=== PATIENT | male | born 2000 | race African-American/Black ===

== ENCOUNTER 2025-07-21 17:29 | Inpatient (IN) | payer MEDICAID, OTHER, SELFPAY ==
[2025-07-21 17:45] VITALS: BP 105/56; PULSE 84; RESP 18; TEMP 36.4; O2SAT 98
[2025-07-21 18:24] VITALS: BMI 22.1
--- NOTE | 2025-07-21 18:58 | PC.ADMIT ---
Arthur is a 25 y/o male , language is French Creole admitted from [facility] at 1740 on a CV for the treatment of? psychosis unspecified. Pt called 911 after having CAH to harm himself and family. Pt is A&O x 3 he is not aware of location. Pt is distracted with poor eye contact. Speech was mumbled . TW met with pt using the [employer] service, # [id number]. Pt is depressed and concerned about ?getting treatment for his thoughts?. Pt reporting that when he listens to music he hears voices telling him to harm others. Pt says he will get staff id these thoughts arise. Pt clint SI at this time. Pt was distracted during the interview and had some delayed responses.? Pt is unsure where he will live when discharged, reporting he is now homeless. He denies any recent weight loss. He reports having nightmares that make his sleep difficult. Pt has not provided a tox screen, but declines any substance use. Skin check completed and skin is intact. Pt declines any medical concerns and none are visible. Pt placed on 15 minute safety checks. Pt declined the flu vaccine.
[2025-07-22 07:00] VITALS: BMI 22.2
[2025-07-22 08:00] VITALS: BP 103/52; PULSE 75; RESP 16; TEMP 36.5; O2SAT 100
[2025-07-22 09:13] LABS: Alanine Aminotransferase 23 U/L (0-40); Albumin Level 4.9 g/dL (3.5-5.0); Alkaline Phosphatase 84 U/L (39-117); Anion Gap 14 (12-20); Aspartate Amino Transferase 25 U/L (5-37); Blood Urea Nitrogen 16 mg/dL (9-16); Calcium 9.6 mg/dL (8.4-10.2); Carbon Dioxide 27 mmol/L (22-29); Chloride 106 mmol/L (96-108); Cholesterol 106 mg/dL (<200); Creatinine Clr Calc Pharmacy 87.0; Estimated Glomerular Filt Rate > 60; HDL Cholesterol 42 mg/dL (>40); Magnesium 2.0 mg/dL (1.6-2.6); Potassium 4.4 mmol/L (3.3-5.1); Sodium 143 mmol/L (135-145); Total Protein 7.7 g/dL (6.5-8.0); Triglycerides 80 mg/dL (<150)
[2025-07-22 09:30] LABS: Free T4 (Free Thyroxine) 1.05 ng/dL (0.71-1.85); Thyroid Stimulating Hormone 0.65 uIU/mL (0.32-4.0)
[2025-07-22 09:36] LABS: Folate 12.8 ng/mL (> or = 4.0); Vitamin B12 1047 pg/mL (200-900)
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
--- NOTE | 2025-07-22 13:38 | P.HPPS_ITS ---
HPI Date of Service: 07/22/25 Chief Complaint: SI and HI Sources of Information: patient interviewed, chart reviewed and crisis/core team assessment reviewed HPI Subjective Notes: Wilde Warning and Conditional Voluntary Healthcare Proxy: No Guardianship: No Medical Problems Affecting Mental Status: No Narrative: Per [place] ED note: Patient is a 25 y.o single Black Armenian male with no prior mental or medical hx who presented to ED via EMS seeking for evaluation on 07/13/25. patient is consistent with report and displayed difficulties recalling a time-line describing the past few weeks. Report he has not slept in a week. Report BILL that affect his ability to sleep. Report feeling depressed because of lacking of sleep. repot something happened at work that he never experienced before which boomeranged and created a riple effect resulting in him feeling down. Report buying Magnesium to help with sleep but found it not helpful. On M3: Meet with patient on 3 different occasions from 07/21 for legal and again twice on 07/22/25 via Call Center Nurse device. The interviewed was interrupted d/t other emergent matter on the unit. Patient continues presenting with inconsistent with information regarding what happened that led to hospitalization and mental health Report no prior mental health issues in the past. This is his first psychiatric admission.He goes back and forth to yes and no regarding SI/SIB/HI/AVH. Report current having passive SI without plan/intent but later on denies SI. Report HI toward whoever close to me and family but then denies it. Report he may get upset and feeling that way. Alsp report CAH but not able to recall what the voices were about or telling him. however, later on he denies it. Report hx of suicide attempt but also says Life is so beautiful for me to kill myself . Report no issues with sleep or appite. Denies Substance use. Denies OP providers. He says he is unemployed but used to work at [employer] from 05/31/25 to 06/22/25 but not able to tell what happened and why he is not working currently. Report he is currently homeless but used to stay with one of family member . Report he cannot return Denies family hx of mental health and substance use. he denies current substance use as well. No more when asked regarding alcohol use issues. Denies legal issues. Patient is A+Ox3, wearing hospital attire, anxious, but pleasant and cooperative. Poor eye contact, mostly head down and look down on the floor but other times he has good eye contact. Inconsistent with reports. Disorganized thoughts, not linear. Insistent regarding safety questions. No unsafe behaviors observed. Appear to be preoccupied, poor historian. Poor judgment and insight. Past Psychiatric History: No prior psychiatric admission hx. No PHP/Respite/detox hx No OP provider No suicide attempt hx. He is not sure if he takes medication in the past Medical Evaluation Reviewed: Hospitalist Roman Pending [facility] Narrative: Denies Narrative: Denies Family History: Denies mental health an substance use in family Social History: He is single, Creo/Armenian speaking. no children. Move to the [place] a about a year. Have been staying with family. Family is supportive per crisis report Substance History: Denies Trauma History: Report something happened at work but not able to collaborate for further information. Diagnostics Vital Signs (24Hr): Vital Signs - 24 hr 07/21/25 17:45 07/22/25 08:00 Temperature 97.5 F 97.7 F Pulse Rate 84 75 Respiratory Rate 18 16 Blood Pressure 105/56 L 103/52 L Pulse Oximetry 98 100 Oxygen Delivery Method Room Air Room Air BMI result Body Mass Index 22.2 Labs 07/22/25 08:12 Labs: Laboratory Results - last 48 hr 07/22/25 07/22/25 08:12 08:19 Sodium 143 Potassium 4.4 Chloride 106 Carbon Dioxide 27 Anion Gap 14 BUN 16 Creatinine 1.27 Estim Creat Clear Calc 87.0 Estimated GFR > 60 Random Glucose 80 Estimat Average Glucose 97 Hemoglobin A1c % 5.0 Calcium 9.6 Magnesium 2.0 Total Bilirubin 0.8 AST 25 ALT 23 Alkaline Phosphatase 84 Total Protein 7.7 Albumin 4.9 Triglycerides 80 Cholesterol 106 LDL Cholesterol, Calc 48 HDL Cholesterol 42 Vitamin B12 1047 H Folate 12.8 TSH 0.65 Free T4 1.05 Meds/Allergies Allergies Allergies Allergy/AdvReac Type Severity Reaction Status Date / Time peanut AdvReac Anaphylaxis Verified 07/21/25 18:25 Mental Status Exam Mental Status Exam Narrative: Patient is A+Ox3, wearing hospital attire, anxious, but pleasant and cooperative. Poor eye contact, mostly head down and look down on the floor but other times he has good eye contact. Inconsistent with reports. Disorganized thoughts, not linear. Insistent regarding safety questions. No unsafe behaviors observed. Appear to be preoccupied, poor historian. Poor judgment and insight. Assessment & Plan Assessment & Plan (1) Unspecified psychosis: Status: Acute Code(s): F29 - Unspecified psychosis not due to a substance or known physiological condition Plan HPI: Patient is a 25 y.o single Black Armenian male with no prior mental or medical hx who presented to ED via EMS seeking for evaluation on 07/13/25. patient is consistent with report and displayed difficulties recalling a time- line describing the past few weeks. Report he has not slept in a week. Report BILL that affect his ability to sleep. Report feeling depressed because of lacking of sleep. repot something happened at work that he never experienced before which boomeranged and created a riple effect resulting in him feeling down. Report buying Magnesium to help with sleep but found it not helpful. Formulation/clinical reasoning: unknown pyschotic cause, increased in anxiety, sleep issues, recently changes in living situation. Very disorganized thoughts, preoccupied. No prior psychiatric hx. Patient would benefit in restrictive environment, diagnostic, medication management and refer patient to OP psychiatric services for aftercare. Hospital course: 07/22/25: No home meds. Poor historian. Discuss with patient regarding Zyprexa to see if it helps clear his thoughts and for possible psychotic behavior. Appear to be psychptic and preoccupied. Zyprexa 5mg at HS and BID PRN Trazodone PRN and Vistaril PRN for insomnia and Anixety. Plan Patient on 15 minute checks for safety. Admitted to M3. CV. Work with treatment team to do collateral Contact the hospitalist regarding hospitalist consultation on admission: seen Patient educated on: diagnosis, medication risk/benefits and therapeutic strategies Informed Consent: understands and further education needed Reason for continued inpatient stay Substantial Risk for: med/psych decompensation Statement Statement: I have reviewed the history and physical and performed a pertinent examination on my patient. No changes have occurred unless specified. If the History and Physical was not performed prior to admission, the Hospitalist's service will be consulted for completing the admission physical. Time Spent With Patient Time: Total time managing care of this patient today ____ minutes.
[2025-07-22 19:48] VITALS: BP 89/65; PULSE 84; RESP 16; TEMP 36.9; O2SAT 100
[2025-07-22 22:24] VITALS: BP 115/60; PULSE 68
--- NOTE | 2025-07-23 05:54 | HO.PSYCHPN ---
Subjective Subjective Date of Service: 07/23/25 Reason For Visit: SI and HI Subjective Notes: 3 Day Interim History: Chart reviewed. Case discussed in team Met w/ pt along w/ SW and his nurse, utilizing [employer] supervisor of engines over video call. Pt reports feeling okay. Slept well. Denies current AH but also states that doesn't go away. it switches in my head . Denies current SI/violent ideation. Denies med SE. Pt signed 3 day this afternoon Medication Compliance: Yes Side effects from medications: No Mental Status Exam Mental Status Exam Narrative: Appearance: dressed in hospital attire. Grooming/hygiene wnl. looked down, generally avoided eye contact Attitude: Cooperative Speech: Speaks some Somali. Utilized [employer] supervisor of engines, who had to keep asking pt to repeat himself since he was soft spoken and it sounds like some of what he said didn't make sense to the railroad supervisor of engines. Of note, the railroad supervisor of engines's accent was also difficult for us to understand at times. Motor activity: Calm and without any tics, tremors or dyskinesias. Steady gait Mood: as noted above Affect: blunted Thought process: disorganized Thought content: as noted above Perception: does not appear to respond to internal stimuli Insight: fair Judgment: fair Diagnostics Vital Signs (24Hr): Vital Signs - 24 hr 07/22/25 08:00 07/22/25 19:48 07/22/25 22:24 Temperature 97.7 F 98.4 F Pulse Rate 75 84 68 Respiratory Rate 16 16 Blood Pressure 103/52 L 89/65 L 115/60 Pulse Oximetry 100 100 Oxygen Delivery Method Room Air Room Air BMI result Body Mass Index 22.2 Labs 07/22/25 08:12 Labs: Laboratory Results - last 48 hr 07/22/25 07/22/25 08:12 08:19 Sodium 143 Potassium 4.4 Chloride 106 Carbon Dioxide 27 Anion Gap 14 BUN 16 Creatinine 1.27 Estim Creat Clear Calc 87.0 Estimated GFR > 60 Random Glucose 80 Estimat Average Glucose 97 Hemoglobin A1c % 5.0 Calcium 9.6 Magnesium 2.0 Total Bilirubin 0.8 AST 25 ALT 23 Alkaline Phosphatase 84 Total Protein 7.7 Albumin 4.9 Triglycerides 80 Cholesterol 106 LDL Cholesterol, Calc 48 HDL Cholesterol 42 Vitamin B12 1047 H Folate 12.8 TSH 0.65 Free T4 1.05 Medications Medications Current Medications Acetaminophen (Acetaminophen 325 Mg Tablet) 650 mg PO Q6H PRN PRN Reason: Headache/Pain, Scale 1-10 Al Hydroxide/Mg Hydroxide (Magnesium Hydrox/Alum Hydrox 30 Ml Oral.Susp) 30 ml PO Q6H PRN PRN Reason: Heartburn/Nausea Hydroxyzine HCl (Hydroxyzine Hcl 25 Mg Tablet) 25 mg PO Q6H PRN PRN Reason: mild anxiety Last Admin: 07/22/25 09:40 Dose: 25 mg Magnesium Hydroxide (Milk Of Magnesia 30 Ml Oral.Susp) 30 ml PO DAILY PRN PRN Reason: Constipation Nicotine (Nicotine 21 Mg Patch.Td24) 21 mg TRANSDERMA DAILY PRN PRN Reason: nicotine craving Nicotine Polacrilex (Nicotine Polacrilex 2 Mg Gum) 2 mg BUCCAL Q2H PRN PRN Reason: Nicotine Cravings Olanzapine (Olanzapine 5 Mg Tablet) 5 mg PO BID PRN PRN Reason: agitation Last Admin: 07/22/25 09:40 Dose: 5 mg Olanzapine (Olanzapine 5 Mg Tablet) 5 mg PO BEDTIME MYKE Last Admin: 07/22/25 20:13 Dose: 5 mg Trazodone HCl (Trazodone Hcl 50 Mg Tablet) 50 mg PO BEDTIME MRX1 PRN PRN Reason: Insomnia Allergies Allergies Allergy/AdvReac Type Severity Reaction Status Date / Time peanut AdvReac Anaphylaxis Verified 07/21/25 18:25 Assessment & Plan Assessment & Plan (1) Unspecified psychosis: Status: Acute Code(s): F29 - Unspecified psychosis not due to a substance or known physiological condition Plan HPI: Patient is a 25 y.o single Black Citizen Of [place] male with no prior mental or medical hx who presented to ED via EMS seeking for evaluation on 07/13/25. patient is consistent with report and displayed difficulties recalling a time-line describing the past few weeks. Report he has not slept in a week. Report BILL that affect his ability to sleep. Report feeling depressed because of lacking of sleep. repot something happened at work that he never experienced before which boomeranged and created a riple effect resulting in him feeling down. Report buying Magnesium to help with sleep but found it not helpful. Formulation/clinical reasoning: unknown pyschotic cause, increased in anxiety, sleep issues, recently changes in living situation. Very disorganized thoughts, preoccupied. No prior psychiatric hx. Patient would benefit in restrictive environment, diagnostic, medication management and refer patient to OP psychiatric services for aftercare. Hospital course: 07/22/25: No home meds. Poor historian. Discuss with patient regarding Zyprexa to see if it helps clear his thoughts and for possible psychotic behavior. Appear to be psychptic and preoccupied. Zyprexa 5mg at HS and BID PRN Trazodone PRN and Vistaril PRN for insomnia and Anixety. Plan Patient on 15 minute checks for safety. Admitted to M3. CV. Work with treatment team to do collateral Contact the hospitalist regarding hospitalist consultation on admission: seen 07/13: Pt signed a 3 day note. His thought process is disorganized and the Citizen [place] Creole had difficulty understanding him at times. Will continue current tx plan for now. Reason for continued inpatient stay Substantial Risk for: med/psych decompensation Time Spent With Patient Time: Total time managing care of this patient today ____ minutes.
[2025-07-23 08:00] VITALS: BP 146/81; PULSE 60; RESP 20; TEMP 36.3; O2SAT 100
[2025-07-23 20:00] VITALS: BP 135/84; PULSE 99; RESP 16; TEMP 37.1; O2SAT 99
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
--- NOTE | 2025-07-24 05:10 | PC.NURSE ---
Awake for most part of the night, disorganized, self dialoguing and exit seeking. Pt slept for 2 hours. He was placed on 5 minutes check for elopement risk.
[2025-07-24 07:30] VITALS: BP 99/57; PULSE 77; RESP 16; TEMP 36.6; O2SAT 100
--- NOTE | 2025-07-24 12:51 | HO.BHRESTREX ---
Behavioral Restraint Exam Behavioral Health Restraint Exam Type of Restraint: Physical Hold, Medication and Mechanical Reason for Restraint: Substantial Risk of Harm to Others Behavioral Assessment / Plan: No further behavioral concerns, continue current plan. (Monitor for any possible side effects from medications. ) Comment: This provider face to face assesses patient within an hour of restraint
[2025-07-24] MEDS: diazePAM 10 MG/2 ML CARTRIDGE IM (13:01)
--- NOTE | 2025-07-24 13:03 | HO.PSYEVENT ---
Documented by User: Dee Dee Lugo NP 07/25/25 00:08 Event Note Date of Service: 07/25/25 Psych Restraint Event Note: Code assist called, Per nursing staff, patient grabbed staff badge, eloped off unit to double door, not able to redirect back to unit. Physical escorted back by staff by 1240. Appear to be agitated, not able to demonstrate safe behaviors. Therefore, patient placed on R/S chair. Refused PO medications, but not able to calm down, IM x1 of Haldol 10mg, Benadryl 25mg and Valium 10 mg given with pending effects. This provider face to face assess patient within an hour of R/S at 1252. Patient states I did not know why he did it (grabbing staff badge) but states that he signed the paper when he came in but I do not think I need to be here . Continue to fight, moving around to get out of R/S chair but redirectable. Patient states he would not do it again. This provider explains d/t family reports unsafe and change in mental status and appeared to be psychotic, therefore he was brought to the hospital. Denies pain. No injured to staff or patient. Security at the seen to assist. Nursing to assess and provide emotional support during R/S. Montior VSs and possible side effects from medications. Release patient once able to regain safe behavior. Contact provider for any safety concerns Time Spent With Patient Time: Total time managing care of this patient today ____ minutes. Documented by User: Lang Umana MD 07/25/25 11:18 Event Note Date of Service: 07/25/25
--- NOTE | 2025-07-24 14:46 | PC.NURSE ---
Patient ambulating cagle, nurse MM standing with female peer in front of phone. Arthur walked by with smile, exchanged hello, then proceeded to grab staff badge from staff chest area. He then ran to door, scanned staff badge and ran into sarah port. Unable to access second door to sarah port. Unable to be redirected, continued to demand discharge, meter repairer helper RM and Staff [facility] interveined, code assist called. Patient resistive, with continued effort to get out of unit.Physical escort to anti room. Security arrived to unit. Patient placed in restraint chair, orders obtained. Patient medicated with Haldol 10mg IM, Benadryl 25 mg IM, Valium 10mg IM with + effects.
--- NOTE | 2025-07-24 23:50 | HO.PSYCHPN ---
Subjective Subjective Date of Service: 07/24/25 Reason For Visit: SI and HI Subjective Notes: 3 Day Healthcare Proxy: No Guardianship: No Medical Problems Affecting Mental Status: No Interim History: Medical record and nursing notes reviewed; case discussed during rounds with team/nursing staff, and met with patient for supportive therapy/psychoeducation, as well as medication management. Per nursing staff, patient grabbed staff badge, eloped off unit to double door, not able to redirect back to unit. Physical escorted back by staff by 1240. Appear to be agitated, not able to demonstrate safe behaviors. Therefore, patient placed on R/S chair. Refused PO medications, but not able to calm down, IM x1 of Haldol 10mg, Benadryl 25mg and Valium 10 mg given with pending effects. This provider face to face assess patient within an hour of R/S at 1252. Patient states I did not know why he did it (grabbing staff badge) but states that he signed the paper when he came in but I do not think I need to be here . Continue to fight, moving around to get out of R/S chair but redirectable. Patient states he would not do it again. This provider explains d/t family reports unsafe and change in mental status and appeared to be psychotic, therefore he was brought to the hospital. Denies pain. No injured to staff or patient. Security at the seen to assist. Nursing to assess and provide emotional support during R/S. Montior VSs and possible side effects from medications. Release patient once able to regain safe behavior. Contact provider for any safety concerns. Medication change to address aggressive and psychotic behaviors. Preoccupied. Medication Compliance: Yes Side effects from medications: No Attending Groups: No Review of Systems Acute medical concerns: No Medical Review of Systems: unchanged Review of Systems Review of Systems Constitutional: Denies fatigue and Denies fever(s) Cardiovascular: Denies chest pain and Denies dyspnea Respiratory: Denies dyspnea Gastrointestinal: Denies abdominal pain Psychiatric: denies suicidal ideation Endocrine: Denies fatigue Yes all other systems are reviewed and are negative Mental Status Exam Mental Status Exam Narrative: Patient is A+Ox3, wearing casual attire, anxious, agitated, eloped. Fair eye contact, Disorganized thoughts, not linear. Perserverative on Discharged. Appear to be preoccupied, poor historian. Poor judgment and insight. Diagnostics Vital Signs (24Hr): Vital Signs - 24 hr 07/24/25 07:30 Temperature 97.9 F Pulse Rate 77 Respiratory Rate 16 Blood Pressure 99/57 L Pulse Oximetry 100 Oxygen Delivery Method Room Air BMI result Body Mass Index 22.2 Labs 07/22/25 08:12 Medications Medications Current Medications Acetaminophen (Acetaminophen 325 Mg Tablet) 650 mg PO Q6H PRN PRN Reason: Headache/Pain, Scale 1-10 Al Hydroxide/Mg Hydroxide (Magnesium Hydrox/Alum Hydrox 30 Ml Oral.Susp) 30 ml PO Q6H PRN PRN Reason: Heartburn/Nausea Hydroxyzine HCl (Hydroxyzine Hcl 25 Mg Tablet) 25 mg PO Q6H PRN PRN Reason: mild anxiety Last Admin: 07/23/25 20:38 Dose: 25 mg Magnesium Hydroxide (Milk Of Magnesia 30 Ml Oral.Susp) 30 ml PO DAILY PRN PRN Reason: Constipation Nicotine (Nicotine 21 Mg Patch.Td24) 21 mg TRANSDERMA DAILY PRN PRN Reason: nicotine craving Nicotine Polacrilex (Nicotine Polacrilex 2 Mg Gum) 2 mg BUCCAL Q2H PRN PRN Reason: Nicotine Cravings Olanzapine (Olanzapine 5 Mg Tablet) 5 mg PO BID PRN PRN Reason: agitation Last Admin: 07/24/25 21:11 Dose: 5 mg Olanzapine (Olanzapine 5 Mg Tablet) 5 mg PO BEDTIME MYKE Last Admin: 07/24/25 21:11 Dose: 5 mg Trazodone HCl (Trazodone Hcl 50 Mg Tablet) 50 mg PO BEDTIME MRX1 PRN PRN Reason: Insomnia Allergies Allergies Allergy/AdvReac Type Severity Reaction Status Date / Time peanut AdvReac Anaphylaxis Verified 07/21/25 18:25 Assessment & Plan Assessment & Plan (1) Unspecified psychosis: Status: Acute Code(s): F29 - Unspecified psychosis not due to a substance or known physiological condition Plan HPI: Patient is a 25 y.o single Black [place] male with no prior mental or medical hx who presented to ED via EMS seeking for evaluation on 07/13/25. patient is consistent with report and displayed difficulties recalling a time-line describing the past few weeks. Report he has not slept in a week. Report BILL that affect his ability to sleep. Report feeling depressed because of lacking of sleep. repot something happened at work that he never experienced before which boomeranged and created a riple effect resulting in him feeling down. Report buying Magnesium to help with sleep but found it not helpful. Formulation/clinical reasoning: unknown pyschotic cause, increased in anxiety, sleep issues, recently changes in living situation. Very disorganized thoughts, preoccupied. No prior psychiatric hx. Patient would benefit in restrictive environment, diagnostic, medication management and refer patient to OP psychiatric services for aftercare. Hospital course: 07/22/25: No home meds. Poor historian. Discuss with patient regarding Zyprexa to see if it helps clear his thoughts and for possible psychotic behavior. Appear to be psychptic and preoccupied. Zyprexa 5mg at HS and BID PRN Trazodone PRN and Vistaril PRN for insomnia and Anxiety. 07/13: Pt signed a 3 day note. His thought process is disorganized and the [place]ian Creole had difficulty understanding him at times. Will continue current tx plan for now. 07/24/25: Per nursing staff, patient grabbed staff badge, eloped off unit to double door, not able to redirect back to unit. Physical escorted back by staff by 1240. Appear to be agitated, not able to demonstrate safe behaviors. Therefore, patient placed on R/S chair. Refused PO medications, but not able to calm down, IM x1 of Haldol 10mg, Benadryl 25mg and Valium 10 mg given with pending effects. This provider face to face assess patient within an hour of R/S at 1252. Patient states I did not know why he did it (grabbing staff badge) but states that he signed the paper when he came in but I do not think I need to be here . Continue to fight, moving around to get out of R/S chair but redirectable. Patient states he would not do it again. This provider explains d/t family reports unsafe and change in mental status and appeared to be psychotic, therefore he was brought to the hospital. Denies pain. No injured to staff or patient. Security at the seen to assist. Nursing to assess and provide emotional support during R/S. Montior VSs and possible side effects from medications. Release patient once able to regain safe behavior. Contact provider for any safety concerns. Medication change to address aggressive and psychotic behaviors. Preoccupied. Poor sleep (only 2 hours). Spitting PRN out when offered. Zyprexa 5mg daily in the morning. Increase HS dose from 5 to 10mg. Patient is on JOSE Restriction. Mouth check. Change to 5 min check. Plan Patient on 15 minute checks for safety: change to 5 min check. Elopement risk. Admitted to [facility]. CV.Signed 3-day notice. on 07/28. Work with treatment team to do collateral Contact the hospitalist regarding hospitalist consultation on admission: seen JOSE restriction and mouth check. Patient educated on: diagnosis, medication risk/benefits and therapeutic strategies Informed Consent: understands and further education needed Reason for continued inpatient stay Substantial Risk for: med/psych decompensation Time Spent With Patient Time: Total time managing care of this patient today ____ minutes.
[2025-07-25 08:00] VITALS: BP 115/69; PULSE 115; RESP 20; TEMP 35.9; O2SAT 100
[2025-07-25 19:41] VITALS: BP 120/63; PULSE 88; RESP 16; TEMP 36.6; O2SAT 97
--- NOTE | 2025-07-25 23:49 | P.PNPSI_ITS ---
Subjective Subjective Date of Service: 07/25/25 Reason For Visit: SI and HI Subjective Notes: 3 Day Healthcare Proxy: No Guardianship: No Medical Problems Affecting Mental Status: No Interim History: Medical record and nursing notes reviewed; case discussed during rounds with team/nursing staff, and met with patient for supportive therapy/psychoeducation, as well as medication management. Met with patient in sensory room without ornamental metal worker helper. Patient speaks pretty well Slovenian. He has the whole stack of legal information given to him by nursing staff. We will review the legal and explained to him over and over again but patient still does not seem processing it well. Explained to patient that on the 1st day he came, he wanted treatment that is why he signed the conditional volunteer with this provider. He also agree with medication plan. Nursing even break down regarding legal and steps may take place. Patient signed a 3 days yesterday. Perseverative on discharge, insisted and repeated saying I am not mentally ill . Reports that my brain is working better . Reports that he was homeless on admission, but denies it today irma, I have my family. They visited me . How come I am homeless and I have my family visit me . Patient is not able to give any answers regarding safety concerns, hallucinations as he has mainly focused on discharge. Patient reports he takes medications but not able to recall. However, on the 1st day he came in, said he takes Tylenol and nothing else Patient appear preoccupied, very tense, anxious, perseverative on discharge, disorganized. Do not peer to have insight. Poor judgment. Per nursing, patient slept better last night with 8 hours, compliant with medications. Per [facility], who was with the patient during restrain in the chair, patient told this he had a couple of times that are you a dad? Do not yell at your kids . Elopement risk, on 5 minute check, mouth check with medication, staff who getting close to him have to hide the batches in pocket as patient still having behavior that suspect that patient can grabthe batch. Medication Compliance: Yes Side effects from medications: No Attending Groups: No Review of Systems Acute medical concerns: No Medical Review of Systems: unchanged Review of Systems Review of Systems Constitutional: Denies fatigue and Denies fever(s) Cardiovascular: Denies chest pain and Denies dyspnea Respiratory: Denies dyspnea Gastrointestinal: Denies abdominal pain Psychiatric: not able to obtain Endocrine: Denies fatigue Yes all other systems are reviewed and are negative Mental Status Exam Mental Status Exam Narrative: Patient is A+Ox3, wearing casual attire, anxious, elopement risk. Fair eye contact, Disorganized thoughts, not linear. Perserverative on Discharged. Appear to be preoccupied, poor historian. Poor judgment and insight. Diagnostics Vital Signs (24Hr): Vital Signs - 24 hr 07/25/25 08:00 07/25/25 19:41 Temperature 96.6 F L 97.9 F Pulse Rate 115 H 88 Respiratory Rate 20 16 Blood Pressure 115/69 120/63 Pulse Oximetry 100 97 Oxygen Delivery Method Room Air Room Air BMI result Body Mass Index 22.2 Labs 07/22/25 08:12 Medications Medications Current Medications Acetaminophen (Acetaminophen 325 Mg Tablet) 650 mg PO Q6H PRN PRN Reason: Headache/Pain, Scale 1-10 Al Hydroxide/Mg Hydroxide (Magnesium Hydrox/Alum Hydrox 30 Ml Oral.Susp) 30 ml PO Q6H PRN PRN Reason: Heartburn/Nausea Hydroxyzine HCl (Hydroxyzine Hcl 25 Mg Tablet) 25 mg PO Q6H PRN PRN Reason: mild anxiety Last Admin: 07/25/25 20:12 Dose: 25 mg Magnesium Hydroxide (Milk Of Magnesia 30 Ml Oral.Susp) 30 ml PO DAILY PRN PRN Reason: Constipation Nicotine (Nicotine 21 Mg Patch.Td24) 21 mg TRANSDERMA DAILY PRN PRN Reason: nicotine craving Nicotine Polacrilex (Nicotine Polacrilex 2 Mg Gum) 2 mg BUCCAL Q2H PRN PRN Reason: Nicotine Cravings Olanzapine (Olanzapine 5 Mg Tablet) 5 mg PO BID PRN PRN Reason: agitation Last Admin: 07/24/25 21:11 Dose: 5 mg Olanzapine (Olanzapine 10 Mg Tablet) 10 mg PO BEDTIME MYKE Last Admin: 07/25/25 20:13 Dose: 10 mg Olanzapine (Olanzapine 5 Mg Tablet) 5 mg PO DAILY MYKE Last Admin: 07/25/25 09:08 Dose: 5 mg Trazodone HCl (Trazodone Hcl 50 Mg Tablet) 50 mg PO BEDTIME MRX1 PRN PRN Reason: Insomnia Allergies Allergies Allergy/AdvReac Type Severity Reaction Status Date / Time peanut AdvReac Anaphylaxis Verified 07/21/25 18:25 Assessment & Plan Assessment & Plan (1) Unspecified psychosis: Status: Acute Code(s): F29 - Unspecified psychosis not due to a substance or known physiological condition Plan HPI: Patient is a 25 y.o single Black [place] male with no prior mental or medical hx who presented to ED via EMS seeking for evaluation on 07/13/25. patient is consistent with report and displayed difficulties recalling a time- line describing the past few weeks. Report he has not slept in a week. Report BILL that affect his ability to sleep. Report feeling depressed because of lacking of sleep. repot something happened at work that he never experienced before which boomeranged and created a riple effect resulting in him feeling down. Report buying Magnesium to help with sleep but found it not helpful. Formulation/clinical reasoning: unknown pyschotic cause, increased in anxiety, sleep issues, recently changes in living situation. Very disorganized thoughts, preoccupied. No prior psychiatric hx. Patient would benefit in restrictive environment, diagnostic, medication management and refer patient to OP psychiatric services for aftercare. Hospital course: 07/22/25: No home meds. Poor historian. Discuss with patient regarding Zyprexa to see if it helps clear his thoughts and for possible psychotic behavior. Appear to be psychptic and preoccupied. Zyprexa 5mg at HS and BID PRN Trazodone PRN and Vistaril PRN for insomnia and Anxiety. 07/13: Pt signed a 3 day note. His thought process is disorganized and the [place] Creole had difficulty understanding him at times. Will continue current tx plan for now. 07/24/25: Per nursing staff, patient grabbed staff badtony, eloped off unit to double door, not able to redirect back to unit. Physical escorted back by staff by 1240. Appear to be agitated, not able to demonstrate safe behaviors. Therefore, patient placed on R/S chair. Refused PO medications, but not able to calm down, IM x1 of Haldol 10mg, Benadryl 25mg and Valium 10 mg given with pending effects. This provider face to face assess patient within an hour of R/S at 1252. Patient states I did not know why he did it (grabbing staff delvin) but states that he signed the paper when he came in but I do not think I need to be here . Continue to fight, moving around to get out of R/S chair but redirectable. Patient states he would not do it again. This provider explains d/t family reports unsafe and change in mental status and appeared to be psychotic, therefore he was brought to the hospital. Denies pain. No injured to staff or patient. Security at the seen to assist. Nursing to assess and provide emotional support during R/S. Montior VSs and possible side effects from medications. Release patient once able to regain safe behavior. Contact provider for any safety concerns. Medication change to address aggressive and psychotic behaviors. Preoccupied. Poor sleep (only 2 hours). Spitting PRN out when offered. Zyprexa 5mg daily in the morning. Increase HS dose from 5 to 10mg. Patient is on JOSE Restriction. Mouth check. Change to 5 min check. 07/25/25: Met with patient in sensory room without ornamental metal worker helper. Patient speaks pretty well Slovenian. He has the whole stack of legal information given to him by nursing staff. We will review the legal and explained to him over and over again but patient still does not seem processing it well. Explained to patient that on the 1st day he came, he wanted treatment that is why he signed the conditional volunteer with this provider. He also agree with medication plan. Nursing even break down regarding legal and steps may take place. Patient signed a 3 days yesterday. Perseverative on discharge, insisted and repeated saying I am not mentally ill . Reports that my brain is working better . Reports that he was homeless on admission, but denies it today irma, I have my family. They visited me . How come I am homeless and I have my family visit me . Patient is not able to give any answers regarding safety concerns, hallucinations as he has mainly focused on discharge. Patient reports he takes medications but not able to recall. However, on the 1st day he came in, said he takes Tylenol and nothing else Patient appear preoccupied, very tense, anxious, perseverative on discharge, disorganized. Do not peer to have insight. Poor judgment. Per nursing, patient slept better last night with 8 hours, compliant with medications. Per [facility], who was with the patient during restrain in the chair, patient told this he had a couple of times that are you a dad? Do not yell at your kids . Elopement risk, on 5 minute check, mouth check with medication, staff who getting close to him have to hide the batches in pocket as patient still having behavior that suspect that patient can grabthe batch. Plan Patient on 15 minute checks for safety: change to 5 min check. Elopement risk. Admitted to M3. CV.Signed 3-day notice. on 07/28. Work with treatment team to do collateral Contact the hospitalist regarding hospitalist consultation on admission: seen JOSE restriction and mouth check. Patient educated on: diagnosis, medication risk/benefits and therapeutic strategies Informed Consent: does not understand and further education needed Reason for continued inpatient stay Substantial Risk for: med/psych decompensation Time Spent With Patient Time: Total time managing care of this patient today ____ minutes.
[2025-07-26 08:00] VITALS: BP 127/72; PULSE 103; RESP 16; TEMP 36.4; O2SAT 98
--- NOTE | 2025-07-26 14:44 | HO.PSYCHPN ---
Subjective Subjective Date of Service: 07/26/25 Reason For Visit: SI and HI Subjective Notes: 3 Day Interim History: Keeping to self. Mostly in his room during the day. 3 day notice up on 07/28/25. Patient reports feeling okay today; pt stated, the voices went away the second day I was here. I'm trying to come out of my room more . denies SI/HI/VH/AH. Patient reports he plans on continuing to be medication compliant when discharged. Future oriented. 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 He reports sleeping well. Continue tx plan. Medication Compliance: Yes Side effects from medications: No Attending Groups: No Mental Status Exam Mental Status Exam Narrative: Pt is alert and oriented; behavior is cooperative and calm; dressed in casual attire; mood is described as good ; eye contact appropriate; Speech is normal rate, volume and not pressured; thought process is organized; Thought content is on discharge; denies SI/HI/VH/AH. Diagnostics Vital Signs (24Hr): Vital Signs - 24 hr 07/25/25 19:41 07/26/25 08:00 Temperature 97.9 F 97.5 F Pulse Rate 88 103 H Respiratory Rate 16 16 Blood Pressure 120/63 127/72 Pulse Oximetry 97 98 Oxygen Delivery Method Room Air Room Air BMI result Body Mass Index 22.2 Labs 07/22/25 08:12 Medications Medications Current Medications Acetaminophen (Acetaminophen 325 Mg Tablet) 650 mg PO Q6H PRN PRN Reason: Headache/Pain, Scale 1-10 Al Hydroxide/Mg Hydroxide (Magnesium Hydrox/Alum Hydrox 30 Ml Oral.Susp) 30 ml PO Q6H PRN PRN Reason: Heartburn/Nausea Hydroxyzine HCl (Hydroxyzine Hcl 25 Mg Tablet) 25 mg PO Q6H PRN PRN Reason: mild anxiety Last Admin: 07/25/25 20:12 Dose: 25 mg Magnesium Hydroxide (Milk Of Magnesia 30 Ml Oral.Susp) 30 ml PO DAILY PRN PRN Reason: Constipation Nicotine (Nicotine 21 Mg Patch.Td24) 21 mg TRANSDERMA DAILY PRN PRN Reason: nicotine craving Nicotine Polacrilex (Nicotine Polacrilex 2 Mg Gum) 2 mg BUCCAL Q2H PRN PRN Reason: Nicotine Cravings Olanzapine (Olanzapine 5 Mg Tablet) 5 mg PO BID PRN PRN Reason: agitation Last Admin: 07/24/25 21:11 Dose: 5 mg Olanzapine (Olanzapine 10 Mg Tablet) 10 mg PO BEDTIME MYKE Last Admin: 07/25/25 20:13 Dose: 10 mg Olanzapine (Olanzapine 5 Mg Tablet) 5 mg PO DAILY COUNT INCLUDES THE [facility] Last Admin: 07/26/25 08:45 Dose: 5 mg Trazodone HCl (Trazodone Hcl 50 Mg Tablet) 50 mg PO BEDTIME MRX1 PRN PRN Reason: Insomnia Allergies Allergies Allergy/AdvReac Type Severity Reaction Status Date / Time peanut AdvReac Anaphylaxis Verified 07/21/25 18:25 Assessment & Plan Assessment & Plan (1) Unspecified psychosis: Status: Acute Code(s): F29 - Unspecified psychosis not due to a substance or known physiological condition Plan Patient is a 25 y.o single Black [place] male with no prior mental or medical hx who presented to ED via EMS seeking for evaluation on 07/13/25. patient is consistent with report and displayed difficulties recalling a time-line describing the past few weeks. Report he has not slept in a week. Report BILL that affect his ability to sleep. Report feeling depressed because of lacking of sleep. repot something happened at work that he never experienced before which boomeranged and created a riple effect resulting in him feeling down. Report buying Magnesium to help with sleep but found it not helpful. Formulation/clinical reasoning: unknown pyschotic cause, increased in anxiety, sleep issues, recently changes in living situation. Very disorganized thoughts, preoccupied. No prior psychiatric hx. Patient would benefit in restrictive environment, diagnostic, medication management and refer patient to OP psychiatric services for aftercare. Plan: Patient on 15 minute checks for safety: change to 5 min check. Elopement risk. Admitted to M3. CV.Signed 3-day notice. on 07/28. Work with treatment team to do collateral Contact the hospitalist regarding hospitalist consultation on admission: seen JOSE restriction and mouth check. 07/22/25: No home meds. Poor historian. Discuss with patient regarding Zyprexa to see if it helps clear his thoughts and for possible psychotic behavior. Appear to be psychptic and preoccupied. Zyprexa 5mg at HS and BID PRN Trazodone PRN and Vistaril PRN for insomnia and Anxiety. 07/13: Pt signed a 3 day note. His thought process is disorganized and the [place] Creole had difficulty understanding him at times. Will continue current tx plan for now. 07/24/25: Per nursing staff, patient grabbed staff delvin, eloped off unit to double door, not able to redirect back to unit. Physical escorted back by staff by 1240. Appear to be agitated, not able to demonstrate safe behaviors. Therefore, patient placed on R/S chair. Refused PO medications, but not able to calm down, IM x1 of Haldol 10mg, Benadryl 25mg and Valium 10 mg given with pending effects. This provider face to face assess patient within an hour of R/S at 1252. Patient states I did not know why he did it (grabbing staff delvin) but states that he signed the paper when he came in but I do not think I need to be here . Continue to fight, moving around to get out of R/S chair but redirectable. Patient states he would not do it again. This provider explains d/t family reports unsafe and change in mental status and appeared to be psychotic, therefore he was brought to the hospital. Denies pain. No injured to staff or patient. Security at the seen to assist. Nursing to assess and provide emotional support during R/S. Montior VSs and possible side effects from medications. Release patient once able to regain safe behavior. Contact provider for any safety concerns. Medication change to address aggressive and psychotic behaviors. Preoccupied. Poor sleep (only 2 hours). Spitting PRN out when offered. Zyprexa 5mg daily in the morning. Increase HS dose from 5 to 10mg. Patient is on JOSE Restriction. Mouth check. Change to 5 min check. 07/25: Met with patient in sensory room without supervisor carding. Patient speaks pretty well [place]. He has the whole stack of legal information given to him by nursing staff. We will review the legal and explained to him over and over again but patient still does not seem processing it well. Explained to patient that on the 1st day he came, he wanted treatment that is why he signed the conditional volunteer with this provider. He also agree with medication plan. Nursing even break down regarding legal and steps may take place. Patient signed a 3 days yesterday. Perseverative on discharge, insisted and repeated saying I am not mentally ill . Reports that my brain is working better . Reports that he was homeless on admission, but denies it today irma, I have my family. They visited me . How come I am homeless and I have my family visit me . Patient is not able to give any answers regarding safety concerns, hallucinations as he has mainly focused on discharge. Patient reports he takes medications but not able to recall. However, on the 1st day he came in, said he takes Tylenol and nothing else Patient appear preoccupied, very tense, anxious, perseverative on discharge, disorganized. Do not peer to have insight. Poor judgment. Per nursing, patient slept better last night with 8 hours, compliant with medications. Per [facility], who was with the patient during restrain in the chair, patient told this he had a couple of times that are you a dad? Do not yell at your kids . Elopement risk, on 5 minute check, mouth check with medication, staff who getting close to him have to hide the batches in pocket as patient still having behavior that suspect that patient can grabthe batch. 07/26: Keeping to self. Mostly in his room during the day. 3 day notice up on 07/28/25. Patient reports feeling okay today; pt stated, the voices went away the second day I was here. I'm trying to come out of my room more . denies SI/HI/VH/AH. Patient reports he plans on continuing to be medication compliant when discharged. Future oriented. 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 He reports sleeping well. Continue tx plan. Patient educated on: diagnosis and medication risk/benefits Reason for continued inpatient stay Substantial Risk for: med/psych decompensation Time Spent With Patient Time: Total time managing care of this patient today _20___ minutes.
[2025-07-26 20:10] VITALS: BP 134/60; PULSE 95; RESP 16; TEMP 36.9; O2SAT 98
[2025-07-27 07:37] VITALS: BP 107/55; PULSE 75; RESP 16; TEMP 35.8; O2SAT 100
--- NOTE | 2025-07-27 14:39 | P.PNPSI_ITS ---
Subjective Subjective Date of Service: 07/27/25 Reason For Visit: SI and HI Subjective Notes: 3 Day Interim History: Patient reports feeling good today; pt reports his mother plans on picking him up tomorrow and they are going to enjoy time together . denies SI/HI/VH/AH. He reports sleeping well. Patient reports he plans on continuing to be medication compliant and plans to follow up with outpatient providers. 3 day notice up on 07/28/25. Medication Compliance: Yes Side effects from medications: No Attending Groups: No Mental Status Exam Mental Status Exam Narrative: Pt is alert and oriented; behavior is cooperative and calm; dressed in casual attire; mood is described as good ; eye contact appropriate; Speech is normal rate, volume and not pressured; thought process is organized; Thought content is on discharge; denies SI/HI/VH/AH. Diagnostics Vital Signs (24Hr): Vital Signs - 24 hr 07/26/25 20:10 07/27/25 07:37 Temperature 98.4 F 96.4 F L Pulse Rate 95 75 Respiratory Rate 16 16 Blood Pressure 134/60 107/55 L Pulse Oximetry 98 100 Oxygen Delivery Method Room Air Room Air BMI result Body Mass Index 22.2 Labs 07/22/25 08:12 Medications Medications Current Medications Acetaminophen (Acetaminophen 325 Mg Tablet) 650 mg PO Q6H PRN PRN Reason: Headache/Pain, Scale 1-10 Al Hydroxide/Mg Hydroxide (Magnesium Hydrox/Alum Hydrox 30 Ml Oral.Susp) 30 ml PO Q6H PRN PRN Reason: Heartburn/Nausea Hydroxyzine HCl (Hydroxyzine Hcl 25 Mg Tablet) 25 mg PO Q6H PRN PRN Reason: mild anxiety Last Admin: 07/25/25 20:12 Dose: 25 mg Magnesium Hydroxide (Milk Of Magnesia 30 Ml Oral.Susp) 30 ml PO DAILY PRN PRN Reason: Constipation Nicotine (Nicotine 21 Mg Patch.Td24) 21 mg TRANSDERMA DAILY PRN PRN Reason: nicotine craving Nicotine Polacrilex (Nicotine Polacrilex 2 Mg Gum) 2 mg BUCCAL Q2H PRN PRN Reason: Nicotine Cravings Olanzapine (Olanzapine 5 Mg Tablet) 5 mg PO BID PRN PRN Reason: agitation Last Admin: 07/24/25 21:11 Dose: 5 mg Olanzapine (Olanzapine 10 Mg Tablet) 10 mg PO BEDTIME MYKE Last Admin: 07/26/25 20:01 Dose: 10 mg Olanzapine (Olanzapine 5 Mg Tablet) 5 mg PO DAILY MYKE Last Admin: 07/27/25 08:56 Dose: 5 mg Trazodone HCl (Trazodone Hcl 50 Mg Tablet) 50 mg PO BEDTIME MRX1 PRN PRN Reason: Insomnia Last Admin: 07/26/25 20:02 Dose: 50 mg Allergies Allergies Allergy/AdvReac Type Severity Reaction Status Date / Time peanut AdvReac Anaphylaxis Verified 07/21/25 18:25 Assessment & Plan Assessment & Plan (1) Unspecified psychosis: Status: Acute Code(s): F29 - Unspecified psychosis not due to a substance or known physiological condition Plan Patient is a 25 y.o single Black [place] male with no prior mental or medical hx who presented to ED via EMS seeking for evaluation on 07/13/25. patient is consistent with report and displayed difficulties recalling a time-line describing the past few weeks. Report he has not slept in a week. Report BILL that affect his ability to sleep. Report feeling depressed because of lacking of sleep. repot something happened at work that he never experienced before which boomeranged and created a riple effect resulting in him feeling down. Report buying Magnesium to help with sleep but found it not helpful. Formulation/clinical reasoning: unknown pyschotic cause, increased in anxiety, sleep issues, recently changes in living situation. Very disorganized thoughts, preoccupied. No prior psychiatric hx. Patient would benefit in restrictive environment, diagnostic, medication management and refer patient to OP psychiatric services for aftercare. Plan: Patient on 15 minute checks for safety: change to 5 min check. Elopement risk. Admitted to M3. CV.Signed 3-day notice. on 07/28. Work with treatment team to do collateral Contact the hospitalist regarding hospitalist consultation on admission: seen JOSE restriction and mouth check. 07/22/25: No home meds. Poor historian. Discuss with patient regarding Zyprexa to see if it helps clear his thoughts and for possible psychotic behavior. Appear to be psychptic and preoccupied. Zyprexa 5mg at HS and BID PRN Trazodone PRN and Vistaril PRN for insomnia and Anxiety. 07/13: Pt signed a 3 day note. His thought process is disorganized and the [place] Creole had difficulty understanding him at times. Will continue current tx plan for now. 07/24/25: Per nursing staff, patient grabbed staff delvin, eloped off unit to double door, not able to redirect back to unit. Physical escorted back by staff by 1240. Appear to be agitated, not able to demonstrate safe behaviors. Therefore, patient placed on R/S chair. Refused PO medications, but not able to calm down, IM x1 of Haldol 10mg, Benadryl 25mg and Valium 10 mg given with pending effects. This provider face to face assess patient within an hour of R/S at 1252. Patient states I did not know why he did it (grabbing staff delvin) but states that he signed the paper when he came in but I do not think I need to be here . Continue to fight, moving around to get out of R/S chair but redirectable. Patient states he would not do it again. This provider explains d/t family reports unsafe and change in mental status and appeared to be psychotic, therefore he was brought to the hospital. Denies pain. No injured to staff or patient. Security at the seen to assist. Nursing to assess and provide emotional support during R/S. Montior VSs and possible side effects from medications. Release patient once able to regain safe behavior. Contact provider for any safety concerns. Medication change to address aggressive and psychotic behaviors. Preoccupied. Poor sleep (only 2 hours). Spitting PRN out when offered. Zyprexa 5mg daily in the morning. Increase HS dose from 5 to 10mg. Patient is on JOSE Restriction. Mouth check. Change to 5 min check. 07/25: Met with patient in sensory room without pad assembler. Patient speaks pretty well Yoruba. He has the whole stack of legal information given to him by nursing staff. We will review the legal and explained to him over and over again but patient still does not seem processing it well. Explained to patient that on the 1st day he came, he wanted treatment that is why he signed the conditional volunteer with this provider. He also agree with medication plan. Nursing even break down regarding legal and steps may take place. Patient signed a 3 days yesterday. Perseverative on discharge, insisted and repeated saying I am not mentally ill . Reports that my brain is working better . Reports that he was homeless on admission, but denies it today irma, I have my family. They visited me . How come I am homeless and I have my family visit me . Patient is not able to give any answers regarding safety concerns, hallucinations as he has mainly focused on discharge. Patient reports he takes medications but not able to recall. However, on the 1st day he came in, said he takes Tylenol and nothing else Patient appear preoccupied, very tense, anxious, perseverative on discharge, disorganized. Do not peer to have insight. Poor judgment. Per nursing, patient slept better last night with 8 hours, compliant with medications. Per [facility], who was with the patient during restrain in the chair, patient told this he had a couple of times that are you a dad? Do not yell at your kids . Elopement risk, on 5 minute check, mouth check with medication, staff who getting close to him have to hide the batches in pocket as patient still having behavior that suspect that patient can grabthe batch. 07/26: Keeping to self. Mostly in his room during the day. 3 day notice up on 07/28/25. Patient reports feeling okay today; pt stated, the voices went away the second day I was here. I'm trying to come out of my room more . denies SI/HI/VH/AH. Patient reports he plans on continuing to be medication compliant when discharged. Future oriented. 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 He reports sleeping well. Continue tx plan. 07/27: Patient reports feeling good today; pt reports his mother plans on picking him up tomorrow and they are going to enjoy time together . denies SI/HI/VH/AH. He reports sleeping well. Patient reports he plans on continuing to be medication compliant and plans to follow up with outpatient providers. 3 day notice up on 07/28/25. Patient educated on: diagnosis and medication risk/benefits Reason for continued inpatient stay Substantial Risk for: stable for discharge Time Spent With Patient Time: Total time managing care of this patient today _15___ minutes.
[2025-07-27 20:00] VITALS: BP 132/62; PULSE 100; RESP 16; TEMP 37.4; O2SAT 99
[2025-07-28 08:00] VITALS: BP 119/70; PULSE 84; RESP 16; TEMP 36.3; O2SAT 100
--- NOTE | 2025-07-28 09:25 | PM.PSYDC ---
DS: Providers Provider Date of Service: 07/28/25 Date of admission: 07/21/25 17:29 Date of discharge: 07/28/25 Primary care physician: None Physician Admitting clinician: Dee Dee Lugo Attending physician on admission: Lang Umana Consults: 07/21/25 18:48 Consult to Hospitalist Routine Comment: [place] [facility] [place] Reason For Exam: admission physical Attending physician on discharge: Lang Umana Discharging clinician: Zulma Bess DS: Diagnosis Discharge Diagnosis (1) Unspecified psychosis: Status: Acute DS: Medications Discharge Medications Home Medications: Previous Rx's ?Medication ?Instructions ?Recorded hydroxyzine HCl 25 mg tablet 25 mg PO BID PRN mild anxiety 30 07/27/25 days #60 tabs olanzapine 10 mg tablet 10 mg PO BEDTIME 30 days #30 tabs 07/27/25 olanzapine 5 mg tablet 5 mg PO DAILY 30 days #30 tabs 07/27/25 Mental Status Exam Mental Status Exam Narrative: Pt is alert and oriented; behavior is cooperative and calm; dressed in casual attire; mood is described as good ; eye contact appropriate; Speech is normal rate, volume and not pressured; thought process is organized; Thought content is on discharge; denies SI/HI/VH/AH. Data Data Completed and Pending Completed studies during hospitalization [Text1]: 07/22/25 07/22/25 08:12 08:19 Sodium 143 Potassium 4.4 Chloride 106 Carbon Dioxide 27 Anion Gap 14 BUN 16 Creatinine 1.27 Estim Creat Clear Calc 87.0 Estimated GFR > 60 Random Glucose 80 Estimat Average Glucose 97 Hemoglobin A1c % 5.0 Calcium 9.6 Magnesium 2.0 Total Bilirubin 0.8 AST 25 ALT 23 Alkaline Phosphatase 84 Total Protein 7.7 Albumin 4.9 Triglycerides 80 Cholesterol 106 LDL Cholesterol, Calc 48 HDL Cholesterol 42 Vitamin B12 1047 H Folate 12.8 TSH 0.65 Free T4 1.05 DS: Summary Hospital Course Hospital Course: Per [place] ED note: Patient is a 25 y.o single Black [place] male with no prior mental or medical hx who presented to ED via EMS seeking for evaluation on 07/13/25. patient is consistent with report and displayed difficulties recalling a time-line describing the past few weeks. Report he has not slept in a week. Report BILL that affect his ability to sleep. Report feeling depressed because of lacking of sleep. repot something happened at work that he never experienced before which boomeranged and created a riple effect resulting in him feeling down. Report buying Magnesium to help with sleep but found it not helpful. On M3: Meet with patient on 3 different occasions from 07/21 for legal and again twice on 07/22/25 via Agriculture Research Director device. The interviewed was interrupted d/t other emergent matter on the unit. Patient continues presenting with inconsistent with information regarding what happened that led to hospitalization and mental health Report no prior mental health issues in the past. This is his first psychiatric admission.He goes back and forth to yes and no regarding SI/SIB/HI/AVH. Report current having passive SI without plan/intent but later on denies SI. Report HI toward whoever close to me and family but then denies it. Report he may get upset and feeling that way. Alsp report CAH but not able to recall what the voices were about or telling him. however, later on he denies it. Report hx of suicide attempt but also says Life is so beautiful for me to kill myself . Report no issues with sleep or appite. Denies Substance use. Denies OP providers. He says he is unemployed but used to work at [employer] from 05/31/25 to 06/22/25 but not able to tell what happened and why he is not working currently. Report he is currently homeless but used to stay with one of family member . Report he cannot return Denies family hx of mental health and substance use. he denies current substance use as well. No more when asked regarding alcohol use issues. Denies legal issues. Patient is A+Ox3, wearing hospital attire, anxious, but pleasant and cooperative. Poor eye contact, mostly head down and look down on the floor but other times he has good eye contact. Inconsistent with reports. Disorganized thoughts, not linear. Insistent regarding safety questions. No unsafe behaviors observed. Appear to be preoccupied, poor historian. Poor judgment and insight. Formulation/clinical reasoning: unknown pyschotic cause, increased in anxiety, sleep issues, recently changes in living situation. Very disorganized thoughts, preoccupied. No prior psychiatric hx. Patient would benefit in restrictive environment, diagnostic, medication management and refer patient to OP psychiatric services for aftercare. Plan: Patient on 15 minute checks for safety: change to 5 min check. Elopement risk. Admitted to M3. CV.Signed 3-day notice. on 07/28. Work with treatment team to do collateral Contact the hospitalist regarding hospitalist consultation on admission: seen JOSE restriction and mouth check. No home meds. Poor historian. Discuss with patient regarding Zyprexa to see if it helps clear his thoughts and for possible psychotic behavior. Appear to be psychptic and preoccupied. Zyprexa 5mg at HS and BID PRN Trazodone PRN and Vistaril PRN for insomnia and Anxiety. Pt signed a 3 day note. His thought process is disorganized and the [place] Creole had difficulty understanding him at times. Will continue current tx plan for now. Per nursing staff, patient grabbed staff badtony, eloped off unit to double door, not able to redirect back to unit. Physical escorted back by staff by 1240. Appear to be agitated, not able to demonstrate safe behaviors. Therefore, patient placed on R/S chair. Refused PO medications, but not able to calm down, IM x1 of Haldol 10mg, Benadryl 25mg and Valium 10 mg given with pending effects. This provider face to face assess patient within an hour of R/S at 1252. Patient states I did not know why he did it (grabbing staff delvin) but states that he signed the paper when he came in but I do not think I need to be here . Continue to fight, moving around to get out of R/S chair but redirectable. Patient states he would not do it again. This provider explains d/t family reports unsafe and change in mental status and appeared to be psychotic, therefore he was brought to the hospital. Denies pain. No injured to staff or patient. Security at the seen to assist. Nursing to assess and provide emotional support during R/S. Montior VSs and possible side effects from medications. Release patient once able to regain safe behavior. Contact provider for any safety concerns. Medication change to address aggressive and psychotic behaviors. Preoccupied. Poor sleep (only 2 hours). Spitting PRN out when offered. Zyprexa 5mg daily in the morning. Increase HS dose from 5 to 10mg. Patient is on JOSE Restriction. Mouth check. Change to 5 min check. Met with patient in sensory room without building services coordinator. Patient speaks pretty well Libyan. He has the whole stack of legal information given to him by nursing staff. We will review the legal and explained to him over and over again but patient still does not seem processing it well. Explained to patient that on the 1st day he came, he wanted treatment that is why he signed the conditional volunteer with this provider. He also agree with medication plan. Nursing even break down regarding legal and steps may take place. Patient signed a 3 days yesterday. Perseverative on discharge, insisted and repeated saying I am not mentally ill . Reports that my brain is working better . Reports that he was homeless on admission, but denies it today irma, I have my family. They visited me . How come I am homeless and I have my family visit me . Patient is not able to give any answers regarding safety concerns, hallucinations as he has mainly focused on discharge. Patient reports he takes medications but not able to recall. However, on the 1st day he came in, said he takes Tylenol and nothing else Patient appear preoccupied, very tense, anxious, perseverative on discharge, disorganized. Do not peer to have insight. Poor judgment. Per nursing, patient slept better last night with 8 hours, compliant with medications. Per [facility], who was with the patient during restrain in the chair, patient told this he had a couple of times that are you a dad? Do not yell at your kids . Elopement risk, on 5 minute check, mouth check with medication, staff who getting close to him have to hide the batches in pocket as patient still having behavior that suspect that patient can grabthe batch. Keeping to self. Mostly in his room during the day. 3 day notice up on 07/28/25. Patient reports feeling okay today; pt stated, the voices went away the second day I was here. I'm trying to come out of my room more . denies SI/HI/VH/AH. Patient reports he plans on continuing to be medication compliant when discharged. Future oriented. 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 He reports sleeping well. Continue tx plan. Patient reports feeling good today; pt reports his mother plans on picking him up tomorrow and they are going to enjoy time together . denies SI/HI/VH/AH. He reports sleeping well. Patient reports he plans on continuing to be medication compliant and plans to follow up with outpatient providers. 3 day notice up on 07/28/25. Status at Discharge Cognitive/behavioral status at discharge: Patient has insight and demonstrates good judgment in terms of wanting to pursue treatment. Patient has a safety plan that includes presenting to the closest ER or calling 911 if feeling unsafe. Functional status at discharge: independent ambulation Overall status at discharge: patient is back to baseline Time Spent with Patient Time attestation: Total time managing care of this patient today __20__ minutes. Time spent: Less than 30 minutes Discharge Plan Discharge Anticipated Discharge Date/Time: 07/28/25 11:30 Patient Disposition: Home, Self-Care Discharge Diagnosis: unspecified psychosis Referrals: [facility] ([facility]) [Other] - 1 Week Referral Note: therapy and psychiatry services available. walk in hours are Saturday-Saturday 8am-8pm and weekends 9-5pm [facility] [Provider Group] - 1 Week Referral Note: 07-26-25 [facility] was added to patients chart. Please call [phone] to schedule a follow up appt within 7-10 days of discharge. No release or PCP on file. Discharge Medications: New olanzapine 10 mg Tablet 10 mg PO BEDTIME 30 Days Qty: 30 0RF olanzapine 5 mg Tablet 5 mg PO DAILY 30 Days Qty: 30 0RF hydroxyzine HCl 25 mg Tablet 25 mg PO BID PRN (Reason: mild anxiety) 30 Days Qty: 60 0RF Discharge Orders: Discharge Order (Routine); Ordered 07/28/25 Ordered By: Zulma Bess Diet: Regular diet Activity on Discharge: As tolerated Stand Alone Forms: Patient Portal Discharge page, Community Support Print Language: Kandi Johnson Care Plan Goals: Maintain mood and safe behaviors Take medications as prescribed Practice coping skills Continue with outpatient providers and reach out to them as needed Health Concerns: Mood stability and behaviors Plan of Treatment: Follow up with your PCP, psychiatric provider and other outpatient providers regarding above concerns Take medications as prescribed Assessment: Patient has insight and demonstrates good judgment in terms of wanting to pursue treatment. Patient has a safety plan that includes presenting to the closest ER or calling 911 if feeling unsafe.
== END 2025-07-28 11:37 | disposition home or self-care (01) | DRG 751 ==
PROVIDERS: Nurse Practitioner Psychiatric/Mental Health; Admitting Provider Psychiatry & Neurology Psychiatry; Responsible Provider Registered Nurse; Visit Provider Psychiatry & Neurology Psychiatry
DX: F29 Unspecified psychosis not due to a substance or known physiological condition (principal); Z78.1 Physical restraint status; Z87.891 Personal history of nicotine dependence; Z79.899 Other long term (current) drug therapy
CPT/HCPCS: 36415; 80053; 80061; 82607; 82746; 83036; 83735; 84439; 84443; J1200; J1630; J3360

== ENCOUNTER → 2025-07-21 17:29 | Outpatient (BNV) | payer MEDICAID, SELFPAY | PROVIDERS: Admitting Provider Psychiatry & Neurology Psychiatry; Visit Provider Physician Assistant Medical | DX: Z00.8 Encounter for other general examination (principal) | CPT/HCPCS: 99221 ==

== ENCOUNTER → 2025-07-21 17:29 | Outpatient (BNV) | payer MEDICAID, SELFPAY | PROVIDERS: Admitting Provider Psychiatry & Neurology Psychiatry; Visit Provider Psychiatry & Neurology Psychiatry | DX: F29 Unspecified psychosis not due to a substance or known physiological condition (principal) | CPT/HCPCS: 99232 ==